=== PATIENT | male | born 1940 | race Caucasian/White ===

== ENCOUNTER 2017-05-07 06:01 | Day surgery (SDC) | payer MEDICARE, BC ==
[~2017-05-07 06:01] MED LIST: Buffered Lidocaine 0.9% SYRIN* 5 ML/SYR SYRINGE INTRADERM ONE; Dexamethasone IV* 4 MG/ML 1 ML (4 MG) IV SLOW PU ONE; Famotidine IV* 10 MG/ML 2 ML (20 mg) IV ONE
[2017-05-07] MEDS ORDERED: Famotidine IV* 10 MG/ML 2 ML (20 mg) ONE (06:06)
[2017-05-07] MEDS ORDERED: Buffered Lidocaine 0.9% SYRIN* 5 ML/SYR SYRINGE ONE (06:07)
[2017-05-07] MEDS ORDERED: ceFAZolin 2 GM PREMIX (*) 2 GM/50 ML BAG IVPB ONE (06:07)
[2017-05-07] MEDS ORDERED: Dexamethasone IV* 4 MG/ML 1 ML (4 MG) ONE (06:07)
[2017-05-07] MEDS ORDERED: Lidocaine 1% MPF wEPI 200,000* 30 ML SDV ONE (07:17)
[2017-05-07] MEDS ORDERED: Bupivacaine 0.5% SDV PF* 30 ML VIAL ONE (07:18)
[2017-05-07] MEDS ORDERED: fentaNYL* 50 MCG/ML 2 ML VIAL (100 MCG VIAL) ONE ×2 (07:36→08:34)
[2017-05-07] MEDS ORDERED: Propofol* 10 MG/ML 20 ML BTL IV PUSH ONE (07:36)
[2017-05-07] MEDS ORDERED: Midazolam* 1 MG/ML 2 ML VIAL (2 MG) ONE (07:36)
[2017-05-07] MEDS ORDERED: Lidocaine 2% PF * 5 ML VIAL ONE (07:36)
[2017-05-07] MEDS ORDERED: PROCHLORPERAZINE INJ 5 MG/ML 2 ML VIAL IV PRN (07:47)
[2017-05-07] MEDS ORDERED: HYDROcodone/ACETAMIN 5-325 MG* 1 TAB PO PRN (07:47)
[2017-05-07] MEDS ORDERED: fentaNYL* 50 MCG/ML 2 ML VIAL (100 MCG VIAL) IV PRN (07:47)
[2017-05-07] MEDS ORDERED: oxyCODONE/Acetamin 5/325 MG* TAB PO PRN (07:47)
[2017-05-07] MEDS ORDERED: Ondansetron INJ* 2 MG/ML VIAL ONE (08:25)
--- NOTE | 2017-05-07 09:12 | PN ---
Progress Note - Progress Note Date of Service: 05/07/17 Note: Brief Operative Note: Preop Dx: Right Inguinal hernia Postop Dx: same, direct Procedure: open repair RIH w/ mesh (PHSE) Anesthesia: local/MAC Surgeon: Gilda Asst: DONNY Riley; ADALI Greer Fluids: 200 ml EBL: 5 ml Specimen: none Drains: none Findings: dictated
[2017-05-07 09:48] VITALS: BP 143/93
--- NOTE | 2017-05-08 04:27 | OP ---
CC: Angeles Koroma MD; Nando Jackson MD * DATE OF OPERATION: 05/07/17 - [facility] DATE OF : 44 SURGEON: Wilbert Vo MD. FERRULER: DONNY Arciniega. ANESTHESIOLOGIST: Lionel Gonzalez MD. ANESTHESIA: Local MAC. PRE-OP DIAGNOSIS: Right inguinal hernia. POST-OP DIAGNOSIS: Direct right inguinal hernia. OPERATIVE PROCEDURE: Open repair of direct right inguinal hernia with mesh. ESTIMATED BLOOD LOSS: Minimal. IV FLUIDS: Crystalloids. SPECIMENS: None. DRAINS: None. COMPLICATIONS: None. COUNTS: The instrument, needle, and sponge counts were correct. DESCRIPTION OF PROCEDURE: The patient was brought to the operating room and placed on the table supine. Sequential compression devices were placed on both lower extremities. The patient was administered intravenous sedation. His right groin was prepped and draped in the usual sterile fashion. He received appropriate intravenous antibiotics. Time-out was performed. Local anesthetic was infiltrated as a field block in the right groin and an oblique incision approximately 5 cm long was created. Subcutaneous tissues were divided with cautery. Crossing vein was divided between clamps and ligated with 4-0 absorbable tie. External oblique aponeurosis was identified and additional anesthetic infiltrated beneath this. This was then opened along the line of its fibers through the superficial ring. Beneath this, the ilioinguinal nerve was identified and it was isolated and preserved medially. The contents of the inguinal canal were isolated with a quarter inch [place] drain. There was no indirect inguinal hernia sac noted. The patient had a large direct inguinal hernia. The transversalis fascia was incised and the preperitoneal space was bluntly developed with finger dissection. The repair was then performed with the Ethicon PHS patch placing the preperitoneal mesh into position and then exteriorizing the onlay patch, which was then sutured to the pubic tubercle, the conjoint tendon and to the shelving edge of the inguinal ligament with interrupted 2-0 Vicryl. Laterally, the mesh was split to allow the egress of the spermatic cord and then the mesh was resutured with a 2-0 Vicryl. The nerve was returned to its anatomic position and the external oblique aponeurosis was run close with 2-0 Vicryl. Adilene's was closed with 3-0 Vicryl in interrupted fashion. The skin was closed with 4-0 Monocryl in subcuticular fashion. Steri- Strips were applied. Dressing was applied. The patient tolerated the procedure well, then was awakened and transferred to recovery room in stable condition. [id number]/CPS #: [id number] MTDD
== END 2017-05-07 10:09 | disposition home or self-care (01) ==
LOC: OR 06:01
PROVIDERS: ATTEND Surgery
DX: K40.90 Unilateral inguinal hernia, without obstruction or gangrene, not specified as recurrent (principal); Z79.82 Long term (current) use of aspirin; I10 Essential (primary) hypertension; I35.0 Nonrheumatic aortic (valve) stenosis; E03.9 Hypothyroidism, unspecified; R97.20 Elevated prostate specific antigen [PSA]; Z96.652 Presence of left artificial knee joint; Z95.2 Presence of prosthetic heart valve
CPT/HCPCS: C1781; J0690; J1100; J2001; J2250; J2405; J2704; J3010

== ENCOUNTER 2017-12-03 07:00 | Observation (INO) | payer MEDICARE, BC ==
[2017-12-03 08:03] LABS: ABS Basophils 0.1 10^3/ul (0-0.2); ABS Eosinophils 0.4 10^3/ul (0-0.6); ABS Monocytes 0.5 10^3/ul (0-0.8); ABS Neutrophils 3.7 10^3/ul (1.5-7.7); ABS Nucleated RBC 0 10^3/ul; Eosinophil % 7.1 % (0-6); Hematocrit 39 % (42-52); Hemoglobin 13.5 g/dl (14.0-18.0); Lymphocyte % 16.8 % (25-47); Mean Corpuscular HGB Conc 34 g/dl (31-36); Mean Corpuscular Hemoglobin 31 pg (27-31); Mean Corpuscular Volume 89 fL (80-94); Nucleated Red Blood Cells % 0.1; Platelet Count 201 10^3/ul (150-450); Red Blood Count 4.41 10^6/ul (4.00-5.40); Red Cell Distribution Width 14 % (10.5-15); White Blood Count 5.7 10^3/ul (3.5-10.8)
[2017-12-03 08:13] LABS: INR 1.03 (0.77-1.02)
[2017-12-03 08:20] LABS: EGFR Non-African American 74.6 (>60)
[2017-12-03] MEDS ORDERED: Lidocaine 1% INJ* 10 MG/ML 30 ML SDV ONE (08:25)
[2017-12-03] MEDS ORDERED: Iohexol 350 (CONTRAST) 200 ML MDV IV ONE (08:27)
[2017-12-03] MEDS ORDERED: Iohexol 300 (CONTRAST) 10 ML SDV ONE (08:29)
[2017-12-03] MEDS ORDERED: Midazolam* 1 MG/ML 10 ML VIAL (10 MG) ONE (08:42)
[2017-12-03] MEDS ORDERED: fentaNYL* 50 MCG/ML 2 ML VIAL (100 MCG VIAL) ONE (08:42)
[2017-12-03] MEDS ORDERED: ceFAZolin 2 GM PREMIX (*) 2 GM/50 ML BAG IVPB ONE (09:00)
[2017-12-03] MEDS ORDERED: ceFAZolin 1 GM/10 ML flush(*) SYRINGE for pocket flush (cardiology) FLUSH ONE (09:00)
[2017-12-03] MEDS ORDERED: ceFAZolin VIAL 1 GM in NS *SYRINGE * * 10 ML ONE (09:00)
[2017-12-03] MEDS ORDERED: oxyCODONE/Acetamin 5/325 MG* TAB PO PRN (10:15)
--- NOTE | 2017-12-03 13:56 | RAD ---
Indication: Post pacemaker placement. Comparison: October 10, 2017 Technique: Upright AP 1110 hours Report: Newly placed RIGHT chest wall pacemaker device with overlying cutaneous saray. Extension at least to the RIGHT atrium and RIGHT ventricle. Residual previous pacemaker lead terminates at the RIGHT ventricle. Upper normal heart size. Unremarkable central pulmonary vasculature and mediastinal contours. No focal pulmonary lesion, compelling alveolar consolidation, pleural effusion, pneumothorax. Internal fixation hardware noted at the sternum and junction of the anterior segment of the RIGHT costal cartilage. IMPRESSION: #. Negative for pneumothorax or pulmonary edema following pacemaker placement.
[2017-12-03] MEDS: Acetaminophen TAB* 325 MG PO PRN ×2 (16:36→23:49)
[2017-12-03] MEDS: ceFAZolin 1 GM VIAL(*) 1 GM in NS 0.9% 50 ML* 50 ML IVPB SCH (16:36)
[2017-12-03] MEDS: Metoprolol Succinate XL TAB* 50 MG PO SCH (20:47)
[2017-12-03] MEDS ORDERED: Levothyroxine TAB* 150 MCG TAB PO SCH (21:00)
[2017-12-04] MEDS: ceFAZolin 1 GM VIAL(*) 1 GM in NS 0.9% 50 ML* 50 ML IVPB SCH ×2 (01:31→09:26)
[2017-12-04] MEDS ORDERED: Omeprazole CAP* 20 MG PO SCH (07:30)
[2017-12-04] MEDS ORDERED: Lisinopril TAB* 10 MG PO ONE (08:00)
[2017-12-04] MEDS ORDERED: Aspirin EC TAB* 81 MG TAB.EC PO SCH (09:00)
--- NOTE | 2017-12-04 09:16 | RAD ---
HISTORY: S/P Device Implant COMPARISONS: December 03, 2017 VIEWS: 4: Frontal dual-energy and lateral views of the chest. FINDINGS: CARDIOMEDIASTINAL SILHOUETTE: The cardiomediastinal silhouette is normal. CHARI: The chari are normal. PLEURA: The costophrenic angles are sharp. No pleural abnormalities are noted. LUNG PARENCHYMA: There is hyperinflation with flattening of the diaphragm and expansion of the AP diameter of the chest. ABDOMEN: The upper abdomen is clear. There is no subphrenic gas. There is no appreciable pneumothorax. BONES AND SOFT TISSUES: Degenerative changes are noted of the spine. OTHER: A right-sided pacemaker is noted. The leads are intact. IMPRESSION: 1. COPD. 2. RIGHT-SIDED PACEMAKER, NO PNEUMOTHORAX.
[2017-12-04] MEDS: Metoprolol Succinate XL TAB* 50 MG PO SCH (09:24)
[2017-12-04 12:24] VITALS: BP 154/79
--- NOTE | 2017-12-04 13:48 | OP ---
CC: Dr. Nando Jackson * DATE OF OPERATION: 12/03/17 - ROOM #449 DATE OF : 44 SURGEON: Harry Villa MD ANESTHESIA: Local anesthesia with conscious sedation. PRE-OP DIAGNOSIS: Sick sinus syndrome, pacemaker at BOB, atrial lead fracture. POST-OP DIAGNOSIS: Sick sinus syndrome, pacemaker at BOB, atrial lead fracture. OPERATIVE PROCEDURE: Dual-chamber pacemaker generator change, new atrial lead implantation, capping, and disuse of the old atrial lead. ESTIMATED BLOOD LOSS: Nil. COMPLICATIONS: None. INDICATIONS: The patient is a 77-year-old gentleman with a history of sick sinus syndrome, history of second-degree heart block, status post pacemaker implantation in 1998. The patient has had multiple generator changes over the years. The patient has now reached elective replacement . The patient's atrial lead has shown increasing lead noise and decreasing impedance suggestive of a lead fracture. Atrial lead revision was recommended at the time of procedure. DESCRIPTION OF PROCEDURE: The patient was brought to the operating room in a fasting state, informed consent had been obtained prior to the procedure. All labs had been reviewed. The patient was placed supine on the procedure table. His right deltopectoral area was cleaned and draped in the usual fashion. 1% lidocaine was used for local anesthesia. Two incisions were made, one just below the clavicle where the axillary vein was entered via ultrasound in a Seldinger technique and a guidewire was placed. A second incision was made just at the superior aspect of the pacemaker and blunt dissection was carried under the pacemaker itself. The pacemaker was freed from the fiber sheath and detached from the atrial and ventricular leads. Venogram was done of the right arm to ensure patency of the axillary and innominate vein prior to the start of the procedure. It was noted to be open and patent. Over the guidewire, a 6-Mauritanian sheath introducer was placed through which a right atrial lead was advanced into the high right atrium. The new right atrial lead was a [employer] model 2088, serial #[id number]. It had a P-wave sensitivity of 4.6, impedance 437 ohms, threshold 0.8 volts at 0.5 milliseconds. The atrial lead was then tunneled from the exterior skin through the fiber sheath into the pacemaker cavity. It was then sutured to the pectoral fascia using 0 silk. The atrial lead was capped off and sutured to the pectoral fascia using 0 silk. The new atrial lead and the old ventricular lead were placed into a new dual-chamber pacemaker. The pocket was flushed with antibiotic-infused normal saline. The surgical incision was closed in 3 layers. The patient tolerated the procedure well with no complications. The new pacemaker is a [employer] model LA1048, serial #[id number]. The explanted pacemaker is a [employer] model 5820, serial #[id number]. The capped atrial lead is a [employer] model 1388, serial #[id number]. The patient was returned to the holding area in stable condition. [id number]/[facility] #: [id number] MTDLorie
--- NOTE | 2017-12-05 02:19 | DS ---
CC: Harry Villa MD; Angeles Koroma MD; Nando Jackson MD * DISCHARGE SUMMARY: DATE OF ADMISSION: 12/03/17 DATE OF DISCHARGE: 12/04/17 HISTORY OF PRESENT ILLNESS: Mr. Jara is a 77-year-old gentleman with a dual- chamber pacemaker implanted in 1998. His atrial lead was not working. His current generator, his second since pacemaker implantation had reached replacement and the decision was made to admit him for an atrial lead revision and pacemaker generator change. The patient underwent pacemaker generator change and implantation of a new atrial lead on 12/03/17, the existing atrial lead was capped. Overnight, the patient clinically did well. Chest x-rays yesterday and today show good lead placement, no evidence of pneumothorax. The patient had only minimal incisional pain. No shortness of breath and no other complaints. PAST MEDICAL HISTORY: 1. Bradycardia with dual-chamber pacemaker implanted 09/30/98, currently atrial pacing 13% of the time, ventricularly pacing 30% of the time. 2. Aortic valve stenosis, status post aortic valve replacement in 2017 ( [facility]). 3. Prostate cancer, status post prostatectomy 6 weeks ago. 4. Pulmonic stenosis. 5. Hypertension. 6. Hypothyroid disease. 7. Diverticulosis. 8. Spinal stenosis. 9. Reflux. 10. "Micro seizures." Past medical history, significant negatives are: Negative for coronary disease , nonobstructive disease in the coronaries on cath 12/05/16. ALLERGIES: The patient has no known drug allergies. SOCIAL HISTORY: The patient is a retired professor. Stopped smoking in 1968. Drinks an alcoholic beverage a day. , 2 grown children. Exercises regularly. HOSPITAL COURSE: As above. The patient is clinically feeling well, ambulating without problems. No pain or shortness of breath. Device: The cap lead is a [employer], model 1388TC/52 implanted 09/30/98. The new atrial lead is a [employer], model 2088TC/46, serial number [id number] and with interrogation today on discharge showing an atrial lead impedance of 430 ohms, atrial sensing 4.5 millivolts and an atrial pacing threshold of 0.375 volts at 0.4 milliseconds. The existing ventricular lead is a [employer], model number 1346T/58, serial number [id number] with R wave sensed at 10.6 millivolts, a ventricular lead impedance of 540 ohms and a ventricular pacing threshold of 0.75 volts at 0.8 milliseconds. Chest x-rays show all 3 leads with good placement. No evidence of pneumothorax. The pacemaker is placed on the right side. PHYSICAL EXAMINATION: The patient is 5 feet 9-1/2 inches, weighs 209 pounds with a BMI of 30. Vitals: Afebrile overnight, blood pressure 154/79, pulse is 60 and atrially paced, oxygen saturation not 100% on room air. The patient is an elderly gentleman, seated, appears in his usual state of health. Psychologically, pleasant and cooperative. Neurologically, awake, alert, and oriented to person, place, and time. Cranial nerves II through XII intact. Grossly normal sensory and motor function in the upper and lower extremities with normal gait. Skin: Warm and dry. Pacer site in the right subclavian fossa. Pressure dressing removed. Minimal wet and dry blood with no evidence of hematoma or ecchymosis. No evidence of infection. Breath sounds were clear in all reyes. No wheezes, rales, or rhonchi. Coronary: S1, S2 regular. Abdomen: Soft, a little overweight. Lower extremities showed trace edema and were warm. DIAGNOSTIC STUDIES/LAB DATA: Pacemaker findings as above. Labs on admission: White count 5.7, hematocrit 39, platelets 201,000. INR 1.03. Sodium 138, potassium 4.3, chloride 107, glucose 100, BUN 21, creatinine 0.98. CONCLUSION: Mr. Jara is a 77-year-old gentleman 19 years status post dual- chamber pacemaker implantation with a malfunctioning atrial lead and pacemaker generator at replacement. He underwent pacemaker generator change and implantation of a new atrial lead and capping of the existing malfunctioning atrial lead and is clinically doing well. DISCHARGE MEDICATIONS: He will be discharged on the following medications: 1. Tylenol 650 mg p.o. q.4 hours p.r.n. pain. 2. Aspirin 162 mg a day. 3. Synthroid 150 mcg a day. 4. Toprol-XL 75 mg a day. 5. Prilosec 20 mg a day. 6. Keflex 500 mg t.i.d. for 4 days. FOLLOWUP: The patient is following up with Dr. Villa for a wound check on Saturday. The patient and his had many questions about traveling to a secluded island in [place] and I had extensive discussions on potential risk for dislodgement of the atrial lead and how to minimize this. [id number]/[facility] #: [id number] RAS
== END 2017-12-04 13:20 | disposition home or self-care (01) ==
LOC: CHICATH 07:00 → MEDTELE 10:15
PROVIDERS: ADMIT Specialist; ATTEND Specialist
DX: I49.5 Sick sinus syndrome (principal); Z45.018 Encounter for adjustment and management of other part of cardiac pacemaker; T82.897A Other specified complication of cardiac prosthetic devices, implants and grafts, initial encounter; Y84.8 Other medical procedures as the cause of abnormal reaction of the patient, or of later complication, without mention of misadventure at the time of the procedure; Y92.9 Unspecified place or not applicable; Z85.46 Personal history of malignant neoplasm of prostate; Z90.79 Acquired absence of other genital organ(s); I10 Essential (primary) hypertension; K21.9 Gastro-esophageal reflux disease without esophagitis; I35.0 Nonrheumatic aortic (valve) stenosis; Z87.891 Personal history of nicotine dependence; Z79.82 Long term (current) use of aspirin
CPT/HCPCS: 33216; 33228; 36415; 71045; 71046; 80048; 85025; 85610; 88300; 93005; 99156; 99157; A9270-GY; C1785; C1898; G0378; J0690; J2250; J3010; Q9967

== ENCOUNTER → 2018-06-06 10:58 | Day surgery (SDC) | payer MEDICARE, BC ==
[~2018-06-06 10:58] MED LIST changes: +Atracurium* 10 MG/ML 10 ML VIAL ONE; -Buffered Lidocaine 0.9% SYRIN* 5 ML/SYR SYRINGE INTRADERM ONE; +Buffered Lidocaine 1% SYRIN* 1 ML/SYRINGE INTRADERM ONE; +Bupivacaine 0.25% W/EPI* 10 ML SDV ONE; -Dexamethasone IV* 4 MG/ML 1 ML (4 MG) IV SLOW PU ONE; +Dexamethasone TAB* 4 MG ONE; +Dexamethasone TAB* 4 MG PO ONE; +DiMENhydriNATE IV* 50 MG/ML VIAL IV PUSH PRN; +Famotidine IV* 10 MG/ML 2 ML (20 mg) ONE; +Glycopyrrolate IV* 0.2 MG/ML 1 ML VIAL ONE; +Ibuprofen TAB* 400 MG ONE; +Ibuprofen TAB* 400 MG PO PRN; +KETAMINE HCL* 50 MG/ML 10 ML VIAL ONE; +Ketorolac INJ* 30 MG/ML 1 ML VIAL ONE; +Lactated Ringers 1000 ML Bag* 1,000 ML IV SCH; +Lidocaine 2% PF * 5 ML VIAL ONE; +Midazolam* 1 MG/ML 2 ML VIAL (2 MG) ONE; +Morphine VIAL* 10 MG/ML 1 ML VIAL ONE; +Morphine VIAL* 4 MG/ML VIAL (1 ml vial) IV PRN; +Naloxone* 0.4 MG/ML 1 ML VIAL IV PRN; +Neostigmine Methylsulfate* 1 MG/ML 10 ML VIAL (1 mg/ml) ONE; +Ondansetron ODT TAB* 4 MG ONE; +Ondansetron TAB* 4 MG PO ONE; +PROCHLORPERAZINE INJ 5 MG/ML 2 ML VIAL IV PRN; +Phenylephrine INJ* 10 MG/ML 1 ML VIAL (10 MG) ONE; +Propofol* 10 MG/ML 20 ML BTL ONE; +ceFAZolin 2 GM PREMIX in ORs 2 GM/50 ML BAG IVPB ONE; +fentaNYL* 50 MCG/ML 2 ML VIAL (100 MCG VIAL) IV PRN; +fentaNYL* 50 MCG/ML 2 ML VIAL (100 MCG VIAL) ONE; +hydrALAZINE IV* 20 MG/ML VIAL ONE; +oxyCODONE TAB* 5 MG TAB PO PRN; +oxyCODONE/Acetamin 5/325 MG* TAB PO PRN
--- NOTE | 2018-06-06 15:20 | BRIEFOPN ---
Brief Operative Note - Surgery Procedures: PREOP/POSTOP DX: CHOLELITHIASIS PROC: LAP CHOLECYSTECTOMY SURG: MECENAS ASSIST: NONE ANES: GET; FELLOW EBL: MIN IVF: LR SPEC: GALLBLADDER DRAIN/COMPL: NONE COND: STABLE TO RR
[2018-06-06 16:54] VITALS: BP 132/83
--- NOTE | 2018-06-07 00:24 | OP ---
CC: Angeles Koroma MD; Nando Jackson MD; Wilbert Dave MD OPERATIVE REPORT: DATE OF OPERATION: 06/06/18 DATE OF : 44 SURGEON: Dr. Vo. PRODUCTION LINE ASSEMBLER: None. ANESTHESIOLOGIST: Dr. Moctezuma. ANESTHESIA: General endotracheal. PRE-OP DIAGNOSIS: Symptomatic cholelithiasis. POST-OP DIAGNOSIS: Symptomatic cholelithiasis. OPERATIVE PROCEDURE: Laparoscopic cholecystectomy. ESTIMATED BLOOD LOSS: Minimal. IV FLUIDS: Crystalloid. SPECIMENS: None. DRAINS: None. COMPLICATIONS: None. COUNTS: The instrument, needle, and sponge counts were correct. DESCRIPTION OF PROCEDURE: The patient was brought to the operating room and placed on the table supi ne. Sequential compression devices were placed on both lower extremities. General anesthesia was ad ministered. The abdomen was prepped and draped in the usual sterile fashion and time-out was perform ed. Local anesthetic was infiltrated into the skin and soft tissue prior to making each incision. Entry to the abdomen was through a transumbilical vertical incision using an open technique. After accessi ng the peritoneal cavity with a 5 mm optical trocar, carbon dioxide was insufflated to a pressure of 15 mmHg. Under direct visualization, additional trocars were placed. These included a 5 mm trocar i n the subxiphoid position, two 5 mm trocars in the right upper quadrant. The umbilical trocar was re placed with a 12 mm trocar. The gallbladder was identified. It was noted to have a large amount of fat enrobing it. The fundus was grasped and retracted cephalad. The peritoneum and fat overlying the infundibulum was incised wi th cautery, dissected free, and the wall of the gallbladder was grasped to manipulate it. The dissec tion proceeded on medial and lateral aspects of the gallbladder opening up the planes and identifying the cystic duct and cystic artery. A critical view was obtained. The cystic duct and cystic artery were each doubly clipped and divided. The gallbladder was then grasped at the infundibulum and retr acted cephalad. Cautery was used to free the gallbladder from attachments to the liver, staying in a vascular plane. The gallbladder was placed in endoscopic retrieval bag and retrieved through the umb ilical site. The area of dissection was inspected, noted to be hemostatic, and clips were intact. T he ports have been removed under direct visualization and carbon dioxide was released. Umbilicus was closed with 0 Vicryl in [id number] fashion to approximate fascia. Skin incisions were closed w ith 4-0 Monocryl in subcuticular fashion. Steri-strips were applied. The patient tolerated this pro cedure well, was extubated, and transferred to recovery in a stable condition. [id number]/[facility] #: [id number]
== END | disposition home or self-care (01) ==
LOC: OR 10:58
PROVIDERS: ATTEND Surgery
DX: K80.12 Calculus of gallbladder with acute and chronic cholecystitis without obstruction (principal); Z87.891 Personal history of nicotine dependence; I35.0 Nonrheumatic aortic (valve) stenosis; I10 Essential (primary) hypertension; E03.9 Hypothyroidism, unspecified; K21.9 Gastro-esophageal reflux disease without esophagitis; C61 Malignant neoplasm of prostate; R79.89 Other specified abnormal findings of blood chemistry; Z95.2 Presence of prosthetic heart valve
CPT/HCPCS: 88304; A9270-GY; J0360; J0690; J1885; J2250; J2270; J2704; J2710; J3010; J8540